=== PATIENT | male | born 1975 | race Caucasian/White ===

== ENCOUNTER 2016-03-22 09:10 | Emergency (ER) | payer MEDICAID, OTHER ==
[~2016-03-22] VITALS: Ht 172.7 cm; Wt 117.0 kg
[~2016-03-22 09:10] MED LIST: ALBU6.7H IH
[2016-03-22] MEDS ORDERED: BUDE10.2 IH (09:27)
[2016-03-22] MEDS ORDERED: MONT10TA21 PO (09:27)
[2016-03-22] MEDS ORDERED: OMEP10 PO (09:27)
[2016-03-22] MEDS ORDERED: MethylPREDNISolone SOD SUCC 125 MG/2 ML VIAL IVP ONE (10:30)
[2016-03-22] MEDS ORDERED: LEVOFLOXACIN 500 MG/D5% WATER 100 ML IV ONE (10:30)
[2016-03-22 12:28] VITALS: BP 134/80
== END 2016-03-22 12:32 | disposition home or self-care (01) ==
LOC: EMS 09:15
DX: J45.909 Unspecified asthma, uncomplicated (principal); J40 Bronchitis, not specified as acute or chronic; L03.019 Cellulitis of unspecified finger; F17.210 Nicotine dependence, cigarettes, uncomplicated; M19.90 Unspecified osteoarthritis, unspecified site; E03.9 Hypothyroidism, unspecified; N40.0 Benign prostatic hyperplasia without lower urinary tract symptoms; F12.10 Cannabis abuse, uncomplicated; Z88.0 Allergy status to penicillin; Z88.1 Allergy status to other antibiotic agents
CPT/HCPCS: 71010; 96365; 96375; 99284; J1956; J2930

== ENCOUNTER 2020-03-12 15:55 | Emergency (ER) | payer MEDICAID ==
[~2020-03-12] VITALS: Ht 175.3 cm; Wt 96.4 kg
[~2020-03-12 15:55] MED LIST changes: +BUDE10.2 IH; +MONT-35 PO; +OMEP10 PO
[2020-03-12 19:29] VITALS: BP 147/104
== END 2020-03-12 20:46 | disposition home or self-care (01) ==
LOC: EMS 15:56
DX: F20.9 Schizophrenia, unspecified (principal); J45.909 Unspecified asthma, uncomplicated; F32.9 Major depressive disorder, single episode, unspecified; E03.9 Hypothyroidism, unspecified; N40.0 Benign prostatic hyperplasia without lower urinary tract symptoms; F17.210 Nicotine dependence, cigarettes, uncomplicated; F12.90 Cannabis use, unspecified, uncomplicated; Z79.899 Other long term (current) drug therapy; Z88.0 Allergy status to penicillin; Z88.6 Allergy status to analgesic agent
CPT/HCPCS: 99285; Z7502

== ENCOUNTER 2020-04-16 18:22 | Emergency (ER) | payer MEDICAID ==
[~2020-04-16] VITALS: Ht 175.3 cm; Wt 109.1 kg
[2020-04-16] MEDS ORDERED: EPIN0.3P19 IM (19:09)
[2020-04-16] MEDS ORDERED: ALBU8HFA IH (19:09)
[2020-04-16] MEDS ORDERED: FLUT1BLS9 IH (19:09)
[2020-04-16] MEDS ORDERED: IPRA4AER IH (19:09)
[2020-04-16] MEDS ORDERED: UMEC62.5 IH (19:09)
[2020-04-16] MEDS ORDERED: DEXAMETHASONE 4 MG TABLET PO ONE (19:15)
[2020-04-16 19:24] VITALS: BP 143/81
== END 2020-04-16 19:27 | disposition home or self-care (01) ==
LOC: EMS 18:35
DX: J45.909 Unspecified asthma, uncomplicated (principal); F31.9 Bipolar disorder, unspecified; F20.9 Schizophrenia, unspecified; F17.210 Nicotine dependence, cigarettes, uncomplicated; F12.90 Cannabis use, unspecified, uncomplicated; Z88.0 Allergy status to penicillin; Z88.5 Allergy status to narcotic agent
CPT/HCPCS: 99283; J8540